=== PATIENT | female | born 1955 | race Native Hawaiian/Other Pacific Islander ===

== ENCOUNTER 2016-10-13 09:19 | Outpatient (CLI) | payer OTHER | END 2016-10-13 23:40 | disposition home or self-care (01) | LOC: MAMMO 09:19 | DX: Z12.31 Encounter for screening mammogram for malignant neoplasm of breast (principal) | CPT/HCPCS: G0202-TC ==

== ENCOUNTER 2016-10-20 14:32 | Outpatient (CLI) | payer OTHER | END 2016-10-20 20:15 | disposition home or self-care (01) | LOC: US 14:32 | DX: N63 Unspecified lump in breast (principal); R92.8 Other abnormal and inconclusive findings on diagnostic imaging of breast | CPT/HCPCS: 77056; G0206 ==

== ENCOUNTER 2018-06-14 17:54 | Emergency (ER) | payer OTHER ==
[~2018-06-14] VITALS: Ht 165.1 cm; Wt 72.6 kg
[2018-06-14 18:00] VITALS: TEMP 99.3
[2018-06-14] MEDS ORDERED: GRALISE600 MG PO (18:05)
[2018-06-14] MEDS ORDERED: AMBIEN5 MG PO (18:06)
[2018-06-14] MEDS ORDERED: SIMV40TA57 PO (18:08)
[2018-06-14] MEDS ORDERED: CYCL10TA35 PO (18:09)
[2018-06-14] MEDS ORDERED: PRINIVIL10 MG PO (18:09)
[2018-06-14] MEDS ORDERED: LORA1TAB17 PO (18:10)
[2018-06-14] MEDS ORDERED: ESOMEPRAZOLE MA20 MG PO (18:11)
[2018-06-14] MEDS ORDERED: PROPRANOLOL20 MG PO (18:11)
[2018-06-14] MEDS ORDERED: ZIPR80CA PO (18:13)
[2018-06-14] MEDS ORDERED: LAXATIVE1 TAB PO (18:13)
[2018-06-14] MEDS ORDERED: TRAM50TA PO (18:14)
[2018-06-14] MEDS ORDERED: ASPIRIN 81 LOW81 MG PO (18:14)
[2018-06-14] MEDS ORDERED: XYZAL5 MG PO (18:15)
[2018-06-14] MEDS ORDERED: LAMICTAL200 MG PO (18:16)
[2018-06-14 18:55] VITALS: BP 150/80
== END 2018-06-14 18:55 | disposition home or self-care (01) ==
LOC: ED 17:54
DX: L30.8 Other specified dermatitis (principal)
CPT/HCPCS: 96372; 99283; J1200; J2930

== ENCOUNTER 2018-07-11 16:20 | Outpatient (CLI) | payer OTHER ==
[~2018-07-11 16:20] MED LIST: AMBIEN5 MG PO; ASPIRIN 81 LOW81 MG PO; CYCL10TA35 PO; ESOMEPRAZOLE MA20 MG PO; GRALISE600 MG PO; LAMICTAL200 MG PO; LAXATIVE1 TAB PO; LORA1TAB17 PO; PRINIVIL10 MG PO; PROPRANOLOL20 MG PO; SIMV40TA57 PO; TRAM50TA PO; XYZAL5 MG PO; ZIPR80CA PO
== END 2018-07-11 21:27 | disposition home or self-care (01) ==
LOC: LAB 16:20
DX: L02.416 Cutaneous abscess of left lower limb (principal)
CPT/HCPCS: 87070; 87077; 87185; 87186; 87205

== ENCOUNTER 2022-02-26 09:18 | Outpatient (CLI) | payer OTHER | END 2022-02-26 20:25 | disposition home or self-care (01) | LOC: RAD 09:18 | PROVIDERS: ATTEND Registered Nurse | DX: M79.672 Pain in left foot (principal) ==